=== PATIENT | female | born 1980 | race Caucasian/White ===

== ENCOUNTER 2019-09-04 | Emergency (ER) | payer SELFPAY ==
[~2019-09-04] MED LIST: AMOXIL500 MG OR; CODEINE/GUAIFEN1 SOL PO; FLEXERIL OR; HYDROCO/APAP1 TA9 PO; KEFLEX500 MG PO; NAPROXEN500 MG OR; PANCOF EXP OR; PREDNISONE10 MG PO; ULTRAM50 MG OR; VENTOLIN HFA IN; ZITHROMAX250 MG PO; ZOFRAN4 MG/TAB PO
[2019-09-04] MEDS ORDERED: TAM75CAP PO (09:52)
[2019-09-04] MEDS ORDERED: ZITHROMAX250 MG PO (09:52)
[2019-09-04] MEDS ORDERED: PROVENTIL108 MCG/AC IN (09:52)
[2019-09-04] MEDS ORDERED: CODEINE/GUAIFEN1 SOL PO (09:58)
== END 2019-09-04 10:19 | disposition home or self-care (01) | DRG 153 ==
DX: J11.1 Influenza due to unidentified influenza virus with other respiratory manifestations (principal); J45.909 Unspecified asthma, uncomplicated; F17.210 Nicotine dependence, cigarettes, uncomplicated

== ENCOUNTER 2020-11-07 11:17 | Emergency (ER) | payer SELFPAY ==
[~2020-11-07] VITALS: Ht 162.6 cm; Wt 100.0 kg
[~2020-11-07 11:17] MED LIST changes: +PROVENTIL108 MCG/AC IN; +TAM75CAP PO
[2020-11-07 12:39] VITALS: BP 132/75
[2020-11-07 12:46] LABS: HEMATOCRIT 40.2 % (37.0-47.0); HEMOGLOBIN 13.2 g/dl (12.0-16.0); IMMATURE GRANULOCYTES 0.2 % (0.0-5.0); MEAN CELL VOLUME 90.1 fL CALC (80.0-100.0); MEAN CORPUSCULAR HGB 29.6 pG CALC (26.0-32.0); MEAN CORPUSCULAR HGB CONC 32.8 g/dL CAL (32.0-36.0); NEUT# 5.22 thou/uL (2.00-7.15); RED BLOOD COUNT 4.46 mill/uL (4.20-5.60); RED CELL DISTRI WIDTH 13.4 % (11.5-15.5)
[2020-11-07 13:05] LABS: ANION GAP 11 (6-22 (CALC)); BUN 9 mg/dL (7-17); BUN/CREATININE RATIO 12 (12-20 (CALC)); CARBON DIOXIDE 23 mmol/l (22-30); CHLORIDE 106 mmol/l (95-108); CREATININE 0.8 mg/dL (0.5-1.0); GFR > 60 ML/MIN (>=60 (CALC)); GFR FOR AFR.AMER. > 60 ML/MIN (>=60 (CALC)); SODIUM 136 mmol/l (137-146)
== END 2020-11-07 12:38 | disposition left against medical advice (07) | DRG 103 ==
LOC: ED 11:17
PROVIDERS: Family Medicine
DX: R51.9 Headache, unspecified (principal); F17.200 Nicotine dependence, unspecified, uncomplicated; Z85.9 Personal history of malignant neoplasm, unspecified; Z91.19 Patient's noncompliance with other medical treatment and regimen

== ENCOUNTER 2021-08-25 12:26 | Emergency (ER) | payer BC ==
[~2021-08-25] VITALS: Ht 162.6 cm; Wt 90.0 kg
[2021-08-25 13:26] LABS: URINE BILIRUBIN - DIPSTICK NEGATIVE (NEGATIVE); URINE BLOOD DIPSTICK TRACE-INTACT (NEGATIVE); URINE COLOR YELLOW; URINE GLUCOSE - DIPSTICK NEGATIVE (NEGATIVE); URINE KETONE NEGATIVE (NEGATIVE); URINE LEUK ESTERASE TRACE (NEGATIVE); URINE PROTEIN - DIPSTICK NEGATIVE (NEG-TRACE); URINE SPECIFIC GRAVITY 1.025; URINE UROBILINOGEN - DIPSTICK 0.2 E.U./dL (0.2)
[2021-08-25 13:29] LABS: HCG SERUM/URINE (NEG/POS) NEGATIVE (NEGATIVE); URINE NITRITE - DIPSTICK NEGATIVE (Negative)
[2021-08-25] MEDS ORDERED: VENTOLIN HFA IN (14:02)
[2021-08-25] MEDS ORDERED: ZPAK PO (14:02)
[2021-08-25] MEDS ORDERED: MOTRIN800 MG PO (14:02)
[2021-08-25 14:39] VITALS: BP 113/58
== END 2021-08-25 14:39 | disposition home or self-care (01) | DRG 203 ==
LOC: ED 12:26
DX: J45.909 Unspecified asthma, uncomplicated (principal); F17.210 Nicotine dependence, cigarettes, uncomplicated; Z20.822 Contact with and (suspected) exposure to COVID-19

== ENCOUNTER 2021-11-28 05:48 | Emergency (ER) | payer SELFPAY ==
[~2021-11-28] VITALS: Ht 162.6 cm; Wt 87.0 kg
[~2021-11-28 05:48] MED LIST changes: +MOTRIN800 MG PO; +ZPAK PO
[2021-11-28 06:03] VITALS: BP 137/89
[2021-11-28 06:26] LABS: HEMATOCRIT 40.5 % (37.0-47.0); HEMOGLOBIN 13.2 g/dl (12.0-16.0); IMMATURE GRANULOCYTES 0.2 % (0.0-5.0); MEAN CORPUSCULAR HGB 30.6 pG CALC (26.0-32.0); MEAN CORPUSCULAR HGB CONC 32.6 g/dL CAL (32.0-36.0); NEUT# 7.17 thou/uL (2.00-7.15); RED BLOOD COUNT 4.31 mill/uL (4.20-5.60); RED CELL DISTRI WIDTH 13.9 % (11.5-15.5)
[2021-11-28 06:30] VITALS: BP 107/70
[2021-11-28 06:44] LABS: ALBUMIN 3.4 g/dL (3.2-5.0); ALKALINE PHOSPHATASE 59 u/l (38-126); ANION GAP 8 (6-22 (CALC)); BUN 6 mg/dL (7-17); BUN/CREATININE RATIO 8 (12-20 (CALC)); CARBON DIOXIDE 23 mmol/l (22-30); CHLORIDE 109 mmol/l (95-108); CREATININE 0.8 mg/dL (0.5-1.0); ETHYL ALCOHOL 0 mg/dl (0-30); GFR > 60 ML/MIN (>=60 (CALC)); GFR FOR AFR.AMER. > 60 ML/MIN (>=60 (CALC)); LIPASE 104 u/l (23-300); POTASSIUM 3.9 mmol/l (3.5-5.1); SGOT/AST 17 u/l (14-36); SODIUM 136 mmol/l (137-146); TOTAL PROTEIN 6.1 g/dL (6.3-8.2)
[2021-11-28 06:47] LABS: BILIRUBIN, TOTAL 0.1 mg/dL (0.0-1.4)
[2021-11-28 07:29] VITALS: BP 123/73
[2021-11-28 08:00] VITALS: BP 125/78
[2021-11-28] MEDS ORDERED: VOLTAREN1%GEL TOP (08:58)
== END 2021-11-28 09:15 | disposition home or self-care (01) | DRG 563 ==
LOC: ED 05:48
DX: S46.811A Strain of other muscles, fascia and tendons at shoulder and upper arm level, right arm, initial encounter (principal); M79.622 Pain in left upper arm; M54.2 Cervicalgia; F17.200 Nicotine dependence, unspecified, uncomplicated; X58.XXXA Exposure to other specified factors, initial encounter

== ENCOUNTER 2022-08-25 03:03 | Emergency (ER) | payer SELFPAY ==
[~2022-08-25] VITALS: Ht 162.6 cm; Wt 93.6 kg
[~2022-08-25 03:03] MED LIST changes: +VOLTAREN1%GEL TOP
[2022-08-25 03:24] VITALS: BP 135/82
[2022-08-25 03:27] VITALS: BP 126/86
[2022-08-25 04:12] LABS: HEMATOCRIT 38.2 % (37.0-47.0); HEMOGLOBIN 13.2 g/dl (12.0-16.0); IMMATURE GRANULOCYTES 0.1 % (0.0-5.0); MEAN CELL VOLUME 91.2 fL CALC (80.0-100.0); MEAN CORPUSCULAR HGB 31.5 pG CALC (26.0-32.0); MEAN CORPUSCULAR HGB CONC 34.6 g/dL CAL (32.0-36.0); NEUT# 3.47 thou/uL (2.00-7.15); RED BLOOD COUNT 4.19 mill/uL (4.20-5.60); RED CELL DISTRI WIDTH 13.3 % (11.5-15.5)
[2022-08-25] MEDS ORDERED: VIBRAMYCIN100 M2 PO (05:17)
[2022-08-25 05:20] VITALS: BP 120/84
== END 2022-08-25 05:35 | disposition home or self-care (01) | DRG 203 ==
LOC: ED 03:03
PROVIDERS: Family Medicine
DX: J20.9 Acute bronchitis, unspecified (principal); F17.210 Nicotine dependence, cigarettes, uncomplicated; Z20.822 Contact with and (suspected) exposure to COVID-19

== ENCOUNTER 2022-11-14 07:54 | Emergency (ER) | payer OTHER ==
[~2022-11-14] VITALS: Ht 162.6 cm; Wt 81.8 kg
[~2022-11-14 07:54] MED LIST changes: +VIBRAMYCIN100 M2 PO
[2022-11-14 08:03] VITALS: BP 125/80
[2022-11-14 13:14] VITALS: BP 125/80
[2022-11-14] MEDS ORDERED: IBUPROFEN600 MG PO (13:20)
[2022-11-14] MEDS ORDERED: CYCLOBENZAPRINE10 MG PO (13:20)
== END 2022-11-14 13:25 | disposition home or self-care (01) | DRG 552 ==
LOC: ED 07:54
DX: M54.2 Cervicalgia (principal); M25.511 Pain in right shoulder; R10.2 Pelvic and perineal pain; V49.50XA Passenger injured in collision with unspecified motor vehicles in traffic accident, initial encounter

== ENCOUNTER 2023-07-20 18:08 | Emergency (ER) | payer SELFPAY ==
[~2023-07-20 18:08] MED LIST changes: +CYCLOBENZAPRINE10 MG PO; +IBUPROFEN600 MG PO; +PREDNISONE50 MG PO; +VENTOLIN HFA108 MCG PO
== END 2023-07-20 18:55 | disposition left against medical advice (07) | DRG 951 ==
LOC: ED 18:08 → LWOBS 18:55
DX: Z53.21 Procedure and treatment not carried out due to patient leaving prior to being seen by health care provider (principal)